=== PATIENT | female | born 1935 | race Caucasian/White ===

== ENCOUNTER 2022-06-23 16:19 | Observation (INO) | payer MEDICARE, BC ==
[2022-06-23] MEDS ORDERED: Sodium Chloride 0.9% 10 ML Syringe FLUSH PRN (16:29)
[2022-06-23] MEDS ORDERED: Glycerin 2.1 GM Supp RECTAL ONE (16:46)
[2022-06-23 17:27] LABS: ESTIMATED GFR 34 mL/min (>60)
[2022-06-23 18:00] LABS: CORONAVIRUS COVID-19 NAA NEGATIVE (NEGATIVE)
[2022-06-23] MEDS ORDERED: Dextrose 5%-0.9% NaCl 1,000 ML IV SCH (18:45)
[2022-06-23] MEDS ORDERED: Ondansetron 4 MG Tab.DIS PO PRN (20:47)
[2022-06-23] MEDS ORDERED: Magnesium Sulfate/Water 2 GM in Premix Bag 3 BAG IV SCH (21:00)
[2022-06-23] MEDS ORDERED: Carbidopa/Levodopa 25-100 MG Tab PO SCH (21:00)
[2022-06-23] MEDS: Potassium Chloride 10 MEQ in Premix Bag 1 BAG IV SCH ×2 (21:16→23:36)
[2022-06-23] MEDS: Magnesium Sulfate/Water 50 ML IV SCH ×2 (21:24→23:36)
[2022-06-23] MEDS: fentaNYL 50 MCG/ML SDV IVPUSH PRN (21:35)
[2022-06-23] MEDS: Pantoprazole 40 MG Vial IVPUSH SCH (21:41)
[2022-06-23] MEDS: Melatonin 3 MG Tab PO SCH (21:41)
[2022-06-23] MEDS: Ondansetron 4 MG/2 ML SDV IV PRN (22:07)
[2022-06-24] MEDS: Potassium Chloride 10 MEQ in Premix Bag 1 BAG IV SCH (01:08)
[2022-06-24] MEDS: Sodium Chloride 0.9% 1,000 ML IV SCH (01:09)
[2022-06-24] MEDS: Magnesium Sulfate/Water 50 ML IV SCH (01:30)
[2022-06-24] MEDS: fentaNYL 50 MCG/ML SDV IVPUSH PRN (01:57)
[2022-06-24] MEDS: Ondansetron 4 MG/2 ML SDV IV PRN (03:48)
[2022-06-24] MEDS ORDERED: Aspirin 81 MG Tab.EC PO SCH (09:00)
[2022-06-24] MEDS ORDERED: Potassium Chloride 20 MEQ Tab.ER (PTOM) PO SCH (09:00)
[2022-06-24] MEDS ORDERED: Furosemide 20 MG Tab (PTOM) PO SCH (09:00)
[2022-06-24] MEDS ORDERED: Carbidopa/Levodopa 25-100 MG Tab (PTOM) PO SCH (09:00)
[2022-06-24] MEDS ORDERED: CRANBERRY FRUIT EXTRACT 200 MG PO SCH (09:00)
[2022-06-24] MEDS ORDERED: CRANBERRY FRUIT EXTRACT 500 MG PO SCH (09:00)
[2022-06-24] MEDS: Potassium Chloride 20 MEQ Tab.ER (PTOM) PO SCH (12:30)
[2022-06-24] MEDS: Aspirin 81 MG Tab.EC PO SCH (12:30)
[2022-06-24] MEDS: CRANBERRY FRUIT EXTRACT 500 MG PO SCH (12:30)
[2022-06-24] MEDS: Furosemide 20 MG Tab (PTOM) PO SCH (12:31)
[2022-06-24] MEDS ORDERED: Carbidopa/Levodopa 25-100 MG Tab PO ONE (13:00)
[2022-06-24] MEDS ORDERED: LORazepam 0.5 MG Tab PO PRN (13:04)
[2022-06-24] MEDS: Carbidopa/Levodopa 25-100 MG Tab PO SCH ×3 (15:56→23:48)
[2022-06-24] MEDS: Pantoprazole 40 MG Vial IVPUSH SCH (20:44)
[2022-06-24] MEDS: Melatonin 3 MG Tab PO SCH (21:09)
[2022-06-25] MEDS: Carbidopa/Levodopa 25-100 MG Tab PO SCH ×5 (03:19→20:24)
[2022-06-25] MEDS: fentaNYL 50 MCG/ML SDV IVPUSH PRN (03:22)
[2022-06-25] MEDS: Sodium Chloride 0.9% 1,000 ML IV SCH (10:12)
[2022-06-25] MEDS: Aspirin 81 MG Tab.EC PO SCH (12:06)
[2022-06-25] MEDS: Potassium Chloride 20 MEQ Tab.ER (PTOM) PO SCH (12:07)
[2022-06-25] MEDS: CRANBERRY FRUIT EXTRACT 500 MG PO SCH (12:08)
[2022-06-25] MEDS: Furosemide 20 MG Tab (PTOM) PO SCH (12:08)
[2022-06-25] MEDS: Acetaminophen 325 MG Tab PO PRN ×2 (12:11→21:02)
[2022-06-25] MEDS: Melatonin 3 MG Tab PO SCH (20:21)
[2022-06-25] MEDS: Morphine 10 MG/0.5 ML Oral Syringe PO PRN (21:02)
[2022-06-26] MEDS: Carbidopa/Levodopa 25-100 MG Tab PO SCH ×3 (00:09→07:16)
[2022-06-26] MEDS: Morphine 10 MG/0.5 ML Oral Syringe PO PRN ×2 (01:26→06:18)
[2022-06-26] MEDS: Ondansetron 4 MG/2 ML SDV IV PRN (01:38)
[2022-06-26 07:14] VITALS: BP 149/77; PULSE 92
== END 2022-06-26 11:44 | disposition hospice, inpatient (51) ==
LOC: JP.ED 16:19 → JP.ICU 19:41
PROVIDERS: ADMIT Registered Nurse; ATTEND Hospitalist
DX: R10.30 Lower abdominal pain, unspecified (principal); R53.1 Weakness; K56.600 Partial intestinal obstruction, unspecified as to cause; N18.32 Chronic kidney disease, stage 3b; E11.22 Type 2 diabetes mellitus with diabetic chronic kidney disease; G20 Parkinson's disease; I10 Essential (primary) hypertension; M19.90 Unspecified osteoarthritis, unspecified site; C18.7 Malignant neoplasm of sigmoid colon; F41.9 Anxiety disorder, unspecified; D75.839 Thrombocytosis, unspecified; D72.829 Elevated white blood cell count, unspecified; K59.00 Constipation, unspecified; N13.30 Unspecified hydronephrosis; Z88.8 Allergy status to other drugs, medicaments and biological substances; Z51.5 Encounter for palliative care; Z98.890 Other specified postprocedural states; Z96.649 Presence of unspecified artificial hip joint; Z20.822 Contact with and (suspected) exposure to COVID-19; Z79.899 Other long term (current) drug therapy; Z79.82 Long term (current) use of aspirin
CPT/HCPCS: 0241U; 36415; 74176; 80048; 80053; 83605; 83735; 84443; 85025; 85027; 85651; 96365; 96366; 96368; 96375; 96376; 99223; 99232; 99233; 99238; 99283; 99285; A9270; C9113; G0378; J2405; J3010; J3475; J3480; J7030